=== PATIENT | female | born 1940 | race Hispanic/Latino ===

== ENCOUNTER 2018-08-15 14:08 | Outpatient (CLI) | payer MEDICARE, OTHER ==
--- NOTE | 2018-08-15 20:35 | XRay Report ---
FINAL REPORT PROCEDURE: Lumbar spine. TECHNIQUE: AP, lateral and spot films. HISTORY: SPINAL STENOSIS LUMBOSACRAL REGION COMPARISON: No prior studies are available for comparison. FINDINGS: There is a moderate wedge compression deformity of L3. This may be an old injury, however the exact a ge is uncertain. There is moderate disc space narrowing at L4-5. There is grade 1 spondylolisthesis a t L4-5. There is severe disc space narrowing at L5-S1. The sacrum and sacroiliac joints are unremarka ble. IMPRESSION: Moderate wedge compression deformity of L3. Grade 1 spondylolisthesis at L4-5. Degenerative disc dise ase at L4-5 and L5-S1.
== END 2018-08-15 14:09 | disposition home or self-care (01) ==
LOC: SPVIMAG 14:08
PROVIDERS: ATTEND Internal Medicine
DX: S32.030A Wedge compression fracture of third lumbar vertebra, initial encounter for closed fracture (principal); M43.16 Spondylolisthesis, lumbar region; M51.37 Other intervertebral disc degeneration, lumbosacral region; M48.07 Spinal stenosis, lumbosacral region; X58.XXXA Exposure to other specified factors, initial encounter; Y93.89 Activity, other specified; Y92.89 Other specified places as the place of occurrence of the external cause; Y99.8 Other external cause status
CPT/HCPCS: 72100

== ENCOUNTER 2018-08-22 09:30 | Outpatient (CLI) | payer MEDICARE, OTHER ==
--- NOTE | 2018-08-22 10:55 | Magnetic Resonance Report ---
MRI scan lumbar spine: History: Wedge compression fracture of L3 vertebra. Technique: Multiple, multisequence images were obtained without contrast injection. Findings: Conus medullaris terminates at L1 with normal signal intensity. There is wedge compression fracture noted of L3 vertebral body predominantly involving the superior endplate. Increase in signal intensity is noted on STIR images suggestive of acute/subacute compression fracture L3 vertebral body. Height and signal intensity of L1, L2, L4 and L5 vertebral bodies appears normal. Decrease in height and signal intensity is noted of L3-L4, L4-L5 and L5-S1 disc spaces secondary to degenerative changes. Grade 1 spondylolisthesis is noted at L4-L5. L1-L2. Normal. L2-L3. There is a diffuse disc bulge noted. Evidence of central canal spinal stenosis with bilateral neural foramina narrowing. No definite protrusion of disc or bony fragment. Degenerative facet joints with mild ligamenta flava hypertrophy. L3-L4. Mild diffuse disc bulge. No definite central canal spinal stenosis. Degenerative facet joints with ligamentum flavum hypertrophy. L4-L5. Grade 1 spondylolisthesis. Severe central canal spinal stenosis with bilateral neural foraminal narrowing. Degenerative facet joints and ligamenta flava hypertrophy. L5-S1. Diffuse disc bulge with bilateral neuroforaminal narrowing. Degenerative facet joints. No definite central spinal stenosis. Impression: Acute/subacute compression fracture L3 vertebral body. Grade 1 spondylolisthesis L5-S1 with severe neural foramina narrowing and central canal spinal stenosis. Multiple additional findings as detailed above.
== END 2018-08-22 09:31 | disposition home or self-care (01) ==
LOC: SPVIMAG 09:30
PROVIDERS: ATTEND Internal Medicine
DX: S32.030A Wedge compression fracture of third lumbar vertebra, initial encounter for closed fracture (principal); M48.061 Spinal stenosis, lumbar region without neurogenic claudication; M43.17 Spondylolisthesis, lumbosacral region; X58.XXXA Exposure to other specified factors, initial encounter; Y93.89 Activity, other specified; Y92.89 Other specified places as the place of occurrence of the external cause; Y99.8 Other external cause status
CPT/HCPCS: 72148